=== PATIENT | male | born 1965 | race Caucasian/White ===

== ENCOUNTER → 2018-06-10 | Day surgery (SDC) | payer OTHER ==
[~2018-06-10] MED LIST: NOHOMEMEDICATIONS; NORCO 5-325 TA1 EACH PO; PROTONIX40 MG PO
--- NOTE | 2018-06-10 17:07 | EKG ---
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
--- NOTE | 2018-06-11 09:55 | OP ---
[facility] [address] [place] [address] OPERATIVE REPORT Name: MARIA G HUTCHINSON Room: [facility]#: [id number] Admission: 06/10/18 Attend Phys: Alberto Kirkland Discharge: Date of : 61 Report #: [id number] THIS REPORT FOR: //name// CC: Jacquelyn Kirkland DATE OF SERVICE: 06/10/2018 PREOPERATIVE DIAGNOSIS: Right inguinal hernia. POSTOPERATIVE DIAGNOSIS: Right inguinal hernia. PROCEDURE: Laparoscopic repair of right inguinal hernia with mesh. SURGEON: Alberto Kirkland MD ANESTHESIA: General. ESTIMATED BLOOD LOSS: Minimal. SPECIMEN: None. DESCRIPTION OF PROCEDURE: After informed consent was obtained, the patient was brought to the operating room and placed supine. SCDs were placed and working, preoperative antibiotics were administered, general anesthesia was induced. The abdomen was prepped and draped in the usual sterile fashion. A 10 mm incision was made below the umbilicus. Fascia was incised. Trocar was placed. Pneumoperitoneum was established. A left-sided and right-sided 5 mm port was placed. The peritoneum at the right ASIS was scored. The peritoneum was then incised and reflected inferiorly. This allowed visualization of the cord structures. The pubic bone was identified. I then was able to identify the cord structures. Indirect hernia was fully reduced. A large Bard 3DMax mesh was inserted. It was tacked to Willie's ligament with 2 absorbable tacks. I then reapproximated the peritoneum with the absorbable tacker as well. The ports were removed under direct vision. The fascia at the umbilicus was closed with [id number] 0 Vicryl. Skin was closed with 4-0 Monocryl. Incision was sealed with Dermabond. Membreno catheter was placed prior to prepping the abdomen and it was [place] [address] OPERATIVE REPORT Name: MARIA G HUTCHINSON Room: [facility]#: [id number] Admission: 06/10/18 Attend Phys: Alberto Kirkland Discharge: Date of : 61 Report #: [id number] COMPLICATIONS: None. DISPOSITION: The patient was taken to recovery in satisfactory condition. <ELECTRONICALLY SIGNED> By: Alberto Kirkland MD 06/11/18 0955 1725 2042Alberto Kirkland MD /nt
== END | disposition home or self-care (01) ==
LOC: M.SUR 10:56
DX: K40.90 Unilateral inguinal hernia, without obstruction or gangrene, not specified as recurrent (principal); Z88.8 Allergy status to other drugs, medicaments and biological substances